=== PATIENT | female | born 1960 | race Caucasian/White ===

== ENCOUNTER 2017-05-07 11:11 | Inpatient (IN) | payer OTHER ==
[2017-05-07] MEDS ORDERED: CLONAZEPAM0.5 M1 (13:48)
== END 2017-05-15 14:52 | disposition home or self-care (01) | DRG 331 ==
LOC: O/R 05-12 06:44 → SURH 05-12 06:44 → SURG 05-12 12:00 → SURH 05-12 14:56
PROVIDERS: Colon & Rectal Surgery
PROC: 0DJD8ZZ Inspection of Lower Intestinal Tract, Via Natural or Artificial Opening Endoscopic (ICD-10-PCS; 2017-05-12)
PROC: 0DTE4ZZ Resection of Large Intestine, Percutaneous Endoscopic Approach (ICD-10-PCS; principal; 2017-05-12 13:00)
DX: K57.32 Diverticulitis of large intestine without perforation or abscess without bleeding (principal); K58.8 Other irritable bowel syndrome

== ENCOUNTER 2018-12-03 08:36 | Day surgery (SDC) | payer OTHER ==
[~2018-12-03 08:36] MED LIST: CLONAZEPAM0.5 M1
== END 2018-12-03 13:15 | disposition home or self-care (01) ==
LOC: AMB-ENDOS 08:36
DX: D12.2 Benign neoplasm of ascending colon (principal); K64.1 Second degree hemorrhoids